=== PATIENT | female | born 1985 | race Caucasian/White ===

== ENCOUNTER 2016-12-26 04:32 | Emergency (ER) | payer BC ==
[2016-12-26 04:48] VITALS: BP 109/69
[2016-12-26] MEDS ORDERED: IBUPROFEN 600 MG TABLET PO ONE (04:55)
[2016-12-26] MEDS ORDERED: IBUPROFEN 600 MG TABLET ONE (04:57)
--- NOTE | 2016-12-26 05:00 | ERNOTE ---
Lower Extremity HPI - Narrative Date of Service: 12/26/16 - General Lower Extremities Pain: knee: left Time Seen by Provider: 12/26/16 04:42 Source: patient - Immun/Allergies/Home Medications Immunizations: IMMUNIZATION HX Immunizations Up to Date Yes History of Influenza Vaccine No Hx Pneumococcal Vaccination No Allergies/Adverse Reactions: Allergies Allergy/AdvReac Type Severity Reaction Status Date / Time amoxicillin trihydrate Allergy Severe Swelling Verified 12/26/16 04:48 [From Amoxil] of Throat codeine Allergy Severe Swelling Verified 12/26/16 04:48 of Throat hydrocodone bitartrate Allergy Severe Swelling Verified 12/26/16 04:48 [From Vicodin] of Throat Penicillins Allergy Severe Swelling Verified 12/26/16 04:48 of Throat Home Medications: HOME MEDICATIONS Acetaminophen [Tylenol] 1,000 mg PO Q4H 12/26/16 [Last Taken 12/26/16 03:50] - History of Present Illness Narrative: This is a 31-year-old female who comes to the emergency department after leaving work early. The patient says that she was told 6 months ago that she had a meniscal tear. She had laparoscopic surgery and no tear was identified. She says over the last 2 weeks she's had increased pain and swelling to her left knee. She denies any recent trauma. She also complains of a burning type sensation with a previous incisions were located. She denies any swelling of the calf. She denies any fever. She denies any rash. She denies any history of DVT personally but says that there is a family history of DVT. She denies any shortness of breath or chest pain Review of Systems - Review of Systems Constitutional: Present: no symptoms reported EYE: Present: no symptoms reported ENT: Present: no symptoms reported Respiratory: Present: no symptoms reported Cardiology: Present: no symptoms reported Gastrointestinal/Abdominal: Present: no symptoms reported Genitourinary: Present: no symptoms reported Musculoskeletal: Present: other - knee pain limited range of motion on the left Skin: Present: no symptoms reported Neurological: Present: no symptoms reported Endocrine: Present: no symptoms reported Hematologic/Lymphatic: Present: no symptoms reported Psych: Present: no symptoms reported All Other Systems: All systems neg except as marked - Patient's Past Medical History Patient History - Medical: Arthritis, Other Patient History - Cardiac/Respiratory: No pertinent hx Patient History - Cancer: No Hx of Cancer Patient History - Surgical Procedures: Appendectomy, , D & C, Orthopedic Patient History - Other: None LMP (females 10-50): last week - Social History Living Situations: home Psych History: No pertinent hx Does anyone smoke in the home?: No Smoking Status: Former smoker Have you smoked in the past 12 months: No Alcohol Use: none Drug Use: none - Immunizations Immunizations Up to Date: Yes Hx Pneumococcal Vaccination: No History of Influenza Vaccine: No Physical Exam - Physical Exam General Appearance: Present: wd/wn, alert, no apparent distress Head Exam: Present: normal inspection, no evidence of injury Eye Exam: Normal inspection: bilateral, PERRL: bilateral, EOMI: bilateral Ears, Nose, Throat: Present: normal ENT inspection, normal pharynx Neck: Present: normal inspection, nontender Respiratory: Present: no respiratory distress, normal breath sounds, no accessory muscle use, chest nontender, lungs clear Cardiovascular/Chest: Present: regular rate, rhythm, no murmur, normal peripheral pulses Gastrointestinal/Abdominal: Present: normal bowel sounds, nontender, nondistended, soft, no organomegaly Back Exam: Present: normal inspection, normal range of motion, no CVA tenderness , no vertebral tenderness Extremity Exam: Present: other - patient has limited range of motion secondary to pain and discomfort. She has pain with stressing of the right knee. Anterior drawer is limited due the patient's pain distal neurovascular is intact. Neurological Exam: Present: alert, oriented, normal mood/affect, no motor/ sensory deficits Skin Exam: Present: normal color, warm/dry Lymphatic Exam: Present: no adenopathy ED Progress - Vital Signs Patient's Vital Signs:: I have reviewed the patient's vital signs. Vital Signs: Vital Signs 12/26/16 04:41 Temperature 36.8 C Pulse Rate 88 Respiratory 18 Rate Blood Pressure 109/69 O2 Sat by Pulse 98 Oximetry - X-Ray X-Ray #1 X-Ray: knee Interpretation: Interp. by me X-ray Comments: Degenerative changes. No fracture - Progress/Reassessment Chief Complaint: Lower Extremity Pain/ Injury Progress:: Unchanged Departure Clinical Impression: Knee pain - Departure Disposition: Home self-care Condition: Stable Instructions: Knee Pain Additional Instructions: As we discussed, U have some arthritis in her knee, but I don't see anything broken. I want you to use the knee immobilizer and crutches as much tissue need to. He should take ibuprofen, 3 tablets which are 200 mg each every 6 hours. I want you to call your family doctor and set up a follow-up appointment. He should use the ibuprofen for at least 3 days but not more than 10 days. Certainly if you develop fever, shortness of breath, chest pain, or anything new or worrisome he should return to the ER. Referrals: Angela Putnam FNP [Primary Care Provider] -
== END 2016-12-26 05:41 | disposition home or self-care (01) ==
LOC: ER 04:32
PROC: 2W3MX1Z Immobilization of Left Lower Extremity using Splint (ICD-10-PCS; principal; 2016-12-26)
DX: M25.562 Pain in left knee (principal); Z87.891 Personal history of nicotine dependence